=== PATIENT | male | born 1935 | race Caucasian/White ===

== ENCOUNTER 2019-04-12 12:49 | Inpatient (IN) | payer MEDICARE ==
[~2019-04-12] VITALS: Ht 167.6 cm; Wt 61.6 kg
[~2019-04-12 12:49] MED LIST: ASPI81TA39 PO; ATOR20TA86 PO; CALC-1038 PO; FOLI1TAB35 PO; LEVO500T2 PO; MAGN400T25 PO
[2019-04-12] MEDS ORDERED: 0.9% SODIUM CHLORIDE 10 ML SYRINGE IVP PRN (13:30)
[2019-04-12 15:06] LABS: HEMOGLOBIN 14.2 g/dL (13.5-17.5); MEAN CORPUSCULAR HEMOGLOBIN 30.8 pg (26.0-34.0); MEAN CORPUSCULAR HGB CONC 35.3 G/dL (31.0-37.0); MEAN CORPUSCULAR VOLUME 87 fL (80-100); PLATELET COUNT (AUTO) 274 K/uL (150-450); RED CELL DISTRIBUTION WIDTH 13.6 % (11.5-14.5)
[2019-04-12 15:22] LABS: ANION GAP 9 mmol/L (8-16); CALCIUM, TOTAL 8.6 mg/dL (8.8-10.5); CARBON DIOXIDE 31 mmol/L (22-29); CHLORIDE 100 mmol/L (98-107); CREATININE 1.48 mg/dL (0.60-1.30); GLOMERULAR FILTR. RATE CALC 46 mL/min (>60); GLUCOSE,RANDOM 179 mg/dL (70-110); POTASSIUM 3.8 mmol/L (3.5-5.1); SODIUM SERUM 140 mmol/L (136-145); UREA NITROGEN, BLOOD 20 mg/dL (7-18)
[2019-04-12 15:27] LABS: INR 1.1 (0.9-1.1); PROTHROMBIN TIME 10.7 SEC (9.4-11.6)
[2019-04-12 15:28] LABS: APPEARANCE,URINE CLOUDY (CLEAR); BILIRUBIN,URINE NEGATIVE (NEGATIVE); GLUCOSE, URINE (UA) 100 mg/dL (NEGATIVE); KETONES,URINE NEGATIVE (NEGATIVE); LEUKOCYTE ESTERASE ,URINE NEGATIVE (NEGATIVE); NITRATE,URINE NEGATIVE (NEGATIVE); OCCULT BLOOD,URINE TRACE (NEGATIVE); PROTEIN,URINE NEGATIVE (NEGATIVE); UROBILINOGEN,URINE 0.2 mg/dL (<=1.0)
[2019-04-12 15:29] LABS: ALANINE AMINOTRANSFERASE 36 U/L (12-78); ALBUMIN 3.5 g/dL (3.4-5.0); ALKALINE PHOSPHATASE 96 U/L (46-116); ASPARTATE AMINOTRANSFERASE 41 U/L (15-37); BILIRUBIN,TOTAL 1.1 mg/dL (0.1-1.0); TOTAL PROTEIN, SERUM 7.2 g/dL (6.4-8.2)
[2019-04-12] MEDS ORDERED: VANCOMYCIN HCL 1.5 GM in DEXTROSE 5%-WATER 250 ML IV ONE (15:30)
[2019-04-12] MEDS ORDERED: CefTRIAXone 1 GM/DEXTROSE 50 ML IV ONE (15:30)
[2019-04-12] MEDS ORDERED: SODIUM CHLORIDE 0.9% 1,900 ML IV ONE (15:30)
[2019-04-12 15:35] LABS: BACTERIA,URINE None Seen /HPF (None Seen); RBC,URINE 0-2 /HPF (0-2); WBC,URINE 0-2 /HPF (0-5)
[2019-04-12 15:36] LABS: SQUAMOUS EPITHELIAL CELL,UR None Seen /LPF (None Seen)
[2019-04-12 16:01] LABS: BAND NEUTROPHILS % (MANUAL) 13 % (0-5); LYMPHOCYTES % (MANUAL) 5 % (22-44); MONOCYTES % (MANUAL) 7 % (2-9); SEGMENTED NEUTROPHILS % 75 % (40-70)
[2019-04-12 16:02] LABS: LACTIC ACID 3.3 mmol/L (0.4-2.0)
[2019-04-12] MEDS ORDERED: SODIUM CHLORIDE 0.9% 1,000 ML IV ONE (16:45)
[2019-04-12] MEDS ORDERED: ACETAMINOPHEN 325 MG TABLET PO PRN (16:45)
[2019-04-12] MEDS ORDERED: PIPERACILLIN/TAZO 3.375 GM/D5W 50 ML IV ONE (17:00)
[2019-04-12 20:09] LABS: GLUCOSE,POINT OF CARE 113 MG/DL (70-110)
[2019-04-12 22:58] VITALS: BP 154/82
[2019-04-12] MEDS: PIPERACILLIN SODIUM/TAZOBACTAM 2.25 GM in DEXTROSE 5%-WATER 50 ML IV SCH (23:31)
[2019-04-12] MEDS: HEPARIN SODIUM,PORCINE 5,000 UNITS/ML VIAL SQ SCH (23:31)
[2019-04-12] MEDS: DOCUSATE SODIUM 100 MG CAPSULE PO SCH (23:32)
[2019-04-13] MEDS ORDERED: INFLUENZA VIRUS VACCINE QVS 2019-20 (3YR+)/PF 60 MCG/0.5 ML SYRINGE IM ONE (02:30)
[2019-04-13] MEDS ORDERED: PNEUMOCOCCAL VACCINE POLYVALENT 0.5 ML VIAL [PPSV23] IM ONE (02:30)
[2019-04-13] MEDS ORDERED: SODIUM CHLORIDE 0.9% 250 ML IV ONE (04:26)
[2019-04-13] MEDS: PIPERACILLIN SODIUM/TAZOBACTAM 2.25 GM in DEXTROSE 5%-WATER 50 ML IV SCH ×3 (05:05→17:30)
[2019-04-13 05:21] VITALS: BP 153/85
[2019-04-13 07:16] VITALS: BP 128/73
[2019-04-13 07:20] LABS: BASOPHILS % (AUTO) 0.5 % (0.0-2.0); EOSINOPHILS % (AUTO) 0.9 % (1.0-6.0); HEMATOCRIT 32.2 % (41-53); HEMOGLOBIN 11.7 g/dL (13.5-17.5); LYMPHOCYTES # (AUTO) 1.7 K/uL (1.0-4.8); MEAN CORPUSCULAR HEMOGLOBIN 31.4 pg (26.0-34.0); MEAN CORPUSCULAR HGB CONC 36.4 G/dL (31.0-37.0); MEAN CORPUSCULAR VOLUME 86 fL (80-100); MONOCYTES # (AUTO) 0.6 K/uL (0.1-1.0); MONOCYTES % (AUTO) 8.8 % (2.0-9.0); NEUTROPHILS # (AUTO) 4.8 K/uL (1.8-7.7); NEUTROPHILS % (AUTO) 66.8 % (40.0-70.0); PLATELET COUNT (AUTO) 213 K/uL (150-450); RED BLOOD CELL COUNT(AUTO) 3.74 MIL/uL (4.50-5.90); RED CELL DISTRIBUTION WIDTH 13.3 % (11.5-14.5)
[2019-04-13 07:23] LABS: CALCIUM, TOTAL 7.9 mg/dL (8.8-10.5); CREATININE 1.22 mg/dL (0.60-1.30); POTASSIUM 3.3 mmol/L (3.5-5.1)
[2019-04-13] MEDS: FAMOTIDINE 20 MG TABLET PO SCH (08:18)
[2019-04-13] MEDS: DOCUSATE SODIUM 100 MG CAPSULE PO SCH ×2 (08:18→21:02)
[2019-04-13] MEDS: ASPIRIN 81 MG CHEWABLE TABLET PO SCH (08:19)
[2019-04-13] MEDS: HEPARIN SODIUM,PORCINE 5,000 UNITS/ML VIAL SQ SCH ×2 (08:20→21:02)
[2019-04-13] MEDS: VANCOMYCIN HCL 750 MG in DEXTROSE 5%-WATER 250 ML IV SCH (08:23)
[2019-04-13] MEDS ORDERED: POTASSIUM CHLORIDE 20 MEQ ER TABLET PO PRN (09:45)
[2019-04-13] MEDS ORDERED: POTASSIUM CHL 10 MEQ/WATER 50 ML IV PRN (09:45)
[2019-04-13 10:53] VITALS: BP 111/78
[2019-04-13 15:25] VITALS: BP 111/68
[2019-04-13 19:44] VITALS: BP 99/57
[2019-04-14] VITALS (7 sets, daily range): BP systolic 105–138; BP diastolic 53–85
[2019-04-14] MEDS: PIPERACILLIN SODIUM/TAZOBACTAM 2.25 GM in DEXTROSE 5%-WATER 50 ML IV SCH ×5 (00:27→22:54)
[2019-04-14] MEDS: VANCOMYCIN HCL 750 MG in DEXTROSE 5%-WATER 250 ML IV SCH (07:42)
[2019-04-14] MEDS: DOCUSATE SODIUM 100 MG CAPSULE PO SCH ×2 (07:48→20:40)
[2019-04-14] MEDS: HEPARIN SODIUM,PORCINE 5,000 UNITS/ML VIAL SQ SCH ×2 (07:50→20:40)
[2019-04-14] MEDS: ASPIRIN 81 MG CHEWABLE TABLET PO SCH (07:50)
[2019-04-14] MEDS: FAMOTIDINE 20 MG TABLET PO SCH (07:50)
[2019-04-14 08:18] LABS: CALCIUM, TOTAL 8.4 mg/dL (8.8-10.5); CREATININE 1.18 mg/dL (0.60-1.30); POTASSIUM 3.8 mmol/L (3.5-5.1)
[2019-04-15 04:39] VITALS: BP 119/62
[2019-04-15] MEDS: PIPERACILLIN SODIUM/TAZOBACTAM 2.25 GM in DEXTROSE 5%-WATER 50 ML IV SCH ×3 (05:21→17:27)
[2019-04-15 07:14] LABS: CALCIUM, TOTAL 8.2 mg/dL (8.8-10.5); CREATININE 1.41 mg/dL (0.60-1.30); POTASSIUM 3.7 mmol/L (3.5-5.1); VANCOMYCIN,RANDOM 9.1 mcg/mL (25.0-50.0)
[2019-04-15 07:48] VITALS: BP 105/73
[2019-04-15] MEDS: VANCOMYCIN HCL 1.25 GM in DEXTROSE 5%-WATER 250 ML IV SCH (08:15)
[2019-04-15] MEDS: ASPIRIN 81 MG CHEWABLE TABLET PO SCH (08:15)
[2019-04-15] MEDS: DOCUSATE SODIUM 100 MG CAPSULE PO SCH ×2 (08:15→20:04)
[2019-04-15] MEDS: FAMOTIDINE 20 MG TABLET PO SCH (08:15)
[2019-04-15] MEDS: HEPARIN SODIUM,PORCINE 5,000 UNITS/ML VIAL SQ SCH ×2 (08:16→20:05)
[2019-04-15 11:15] VITALS: BP 130/72
[2019-04-15 15:06] VITALS: BP 117/64
[2019-04-15 20:28] VITALS: BP 112/56
[2019-04-16] MEDS: PIPERACILLIN SODIUM/TAZOBACTAM 2.25 GM in DEXTROSE 5%-WATER 50 ML IV SCH ×3 (00:48→11:23)
[2019-04-16 00:55] VITALS: BP 118/72
[2019-04-16 04:03] VITALS: BP 106/66
[2019-04-16 07:39] VITALS: BP 111/61
[2019-04-16] MEDS: VANCOMYCIN HCL 1.25 GM in DEXTROSE 5%-WATER 250 ML IV SCH (08:11)
[2019-04-16] MEDS: DOCUSATE SODIUM 100 MG CAPSULE PO SCH (08:12)
[2019-04-16] MEDS: FAMOTIDINE 20 MG TABLET PO SCH (08:12)
[2019-04-16] MEDS: HEPARIN SODIUM,PORCINE 5,000 UNITS/ML VIAL SQ SCH (08:12)
[2019-04-16] MEDS: ASPIRIN 81 MG CHEWABLE TABLET PO SCH (08:12)
[2019-04-16 11:54] VITALS: BP 102/56
[2019-04-16] MEDS ORDERED: FAMO20 PO (20:01)
[2019-04-16] MEDS ORDERED: DOCU-275 PO (20:03)
[2019-04-16] MEDS ORDERED: MULT-1192 PO (20:04)
== END 2019-04-16 19:25 | DRG 871 ==
LOC: EMS 12:52 → 5S 17:57
PROVIDERS: ADMIT Internal Medicine; ATTEND Internal Medicine
DX: A41.9 Sepsis, unspecified organism (principal); E43 Unspecified severe protein-calorie malnutrition; G92 Toxic encephalopathy; N17.9 Acute kidney failure, unspecified; F03.90 Unspecified dementia, unspecified severity, without behavioral disturbance, psychotic disturbance, mood disturbance, and anxiety; E87.6 Hypokalemia; E78.00 Pure hypercholesterolemia, unspecified; R62.7 Adult failure to thrive; W18.39XA Other fall on same level, initial encounter; Y93.89 Activity, other specified; Y92.89 Other specified places as the place of occurrence of the external cause; Y99.8 Other external cause status; F32.9 Major depressive disorder, single episode, unspecified; Z68.21 Body mass index [BMI] 21.0-21.9, adult
CPT/HCPCS: 51701; 70450; 83605; 84132; 87040; 93005; 97116; 97162; 97530; 99291; J1644; J2543; J3370; J7030; J7050; J7060

== ENCOUNTER 2019-05-24 08:27 | Emergency (ER) | payer MEDICARE ==
[~2019-05-24] VITALS: Ht 177.8 cm; Wt 59.2 kg
[~2019-05-24 08:27] MED LIST changes: +DOCU-275 PO; +FAMO20 PO; -LEVO500T2 PO; +MULT-1192 PO
[2019-05-24 13:26] VITALS: BP 123/77
== END 2019-05-24 13:30 | disposition home or self-care (01) ==
LOC: EMS 08:27
DX: S01.81XA Laceration without foreign body of other part of head, initial encounter (principal); S01.21XA Laceration without foreign body of nose, initial encounter; E78.00 Pure hypercholesterolemia, unspecified; F32.9 Major depressive disorder, single episode, unspecified; F03.90 Unspecified dementia, unspecified severity, without behavioral disturbance, psychotic disturbance, mood disturbance, and anxiety; Z79.899 Other long term (current) drug therapy; Z79.82 Long term (current) use of aspirin; W18.39XA Other fall on same level, initial encounter; Y93.01 Activity, walking, marching and hiking; Y92.89 Other specified places as the place of occurrence of the external cause; Y99.8 Other external cause status
CPT/HCPCS: 70450; 72125